=== PATIENT | male | born 1940 | race Caucasian/White ===

== ENCOUNTER 2023-04-21 13:36 | Emergency (ER) | payer MEDICARE, OTHER ==
[~2023-04-21] VITALS: Ht 182.9 cm; Wt 75.3 kg
[2023-04-21 14:10] LABS: BASOPHILS # (AUTO) 0.05 K/uL (0.00-0.20); BASOPHILS % (AUTO) 0.5 % (0.0-5.0); EOSINOPHILS # (AUTO) 0.31 K/uL (0.00-0.70); EOSINOPHILS % (AUTO) 3.4 % (0.0-8.0); HEMATOCRIT 43.4 % (42-54); IMMATURE GRANULOCYTE ABSOLUTE 0.06 K/uL (0-1); LYMPHOCYTES % (AUTO) 22.2 % (21.0-51.0); MEAN CORPUSCULAR HEMOGLOBIN 33.3 pg (27.0-33.0); MEAN CORPUSCULAR HGB CONC 34.1 g/dL (32.0-36.0); MEAN CORPUSCULAR VOLUME 97.7 fL (79-99); MONOCYTES # (AUTO) 1.2 K/uL (0.1-1.0); MONOCYTES % (AUTO) 12.5 % (3.0-13.0); NEUTROPHILS # (AUTO) 5.6 K/uL (1.8-7.7); NEUTROPHILS % (AUTO) 60.7 % (40.0-77.0); PLATELET COUNT (AUTO) 196 K/uL (130-400); RED BLOOD CELL COUNT(AUTO) 4.44 MIL/uL (4.50-6.20); WHITE BLOOD COUNT (AUTO) 9.2 K/uL (4.8-10.8)
[2023-04-21 14:24] LABS: CREATININE 1.1 mg/dL (0.5-1.5); POTASSIUM 3.9 mmol/L (3.5-5.1)
[2023-04-21 14:30] LABS: INR 1.36 (0.85-1.15); PROTHROMBIN TIME 15.5 SEC (9.6-11.6)
[2023-04-21 14:31] LABS: PARTIAL THROMBOPLASTIN TIME 37.6 SEC (26.3-35.5)
[2023-04-21 14:32] LABS: B-TYPE NATRIURETIC PEPTIDE 337 pg/mL (0-100)
[2023-04-21 14:34] LABS: ALBUMIN 3.2 g/dL (3.5-5.0); BILIRUBIN,TOTAL 0.9 mg/dL (0.2-1.0); TOTAL PROTEIN, SERUM 6.2 g/dL (6.0-8.3)
[2023-04-21] MEDS ORDERED: IOHEXOL-350 75 ML VIAL IV ONE (14:37)
[2023-04-21 15:59] VITALS: BP 158/59; PULSE 69; RESP 18; O2SAT 99
== END 2023-04-21 16:07 | disposition short-term general hospital (02) ==
LOC: EDH 13:36
DX: I63.9 Cerebral infarction, unspecified (principal); R47.01 Aphasia; I48.91 Unspecified atrial fibrillation; Z79.01 Long term (current) use of anticoagulants
CPT/HCPCS: 99285; 70450; 71045; 82550; 83721; 84484; 80053; 83880; 85025; 85610; 85730; 36415; 70496; 70498; 93005; Q9967